=== PATIENT | female | born 1995 | race Two or more races ===

== ENCOUNTER 2023-12-29 19:20 | Inpatient (IN) | payer MEDICAID, OTHER ==
[~2023-12-29] VITALS: Ht 157.5 cm; Wt 58.4 kg
--- NOTE | 2023-12-29 19:42 | ED.PDOC ---
SOB-HPI HPI Comments [age] year old female who came to ER for shortness of breath. Patient does have history of asthma. States for the past 2 days she has been having shortness of breath and wheezing, progressively worsening. Albuterol inhalers taken at home has offered no relief. Upon arrival paramedics patient was saturating 70% on room air. Patient was given breathing treatment and it improved to 94%. Patient currently complaining of headaches as well. 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 Family History Family History: Reviewed,noncontributory to illness Social History Smoker: Non-Smoker Alcohol: Denies ETOH Use Drugs: Denies Drug Use Lives In: Home Constitutional: denies: chills, diaphoresis, fatigue, fever, malaise, sweats, weakness, others EENTM: denies: blurred vision, double vision, ear bleeding, ear discharge, ear drainage, ear pain, ear ringing, eye pain, eye redness, hearing loss, mouth pain, mouth swelling, nasal discharge, nose bleeding, nose congestion, nose pain, photophobia, tearing, throat pain, throat swelling, voice changes, others Respiratory: reports: cough, SOB at rest, shortness of breath, wheezing; denies: hemoptysis, orthopnea, SOB with excertion, stridor, others Cardiovascular: denies: chest pain, dizzy spells, diaphoresis, Dyspnea on exertion, edema, irregular heart beat, left arm pain, lightheadedness, palpitations, PND, syncope, others Gastrointestinal: denies: abdomen distended, abdominal pain, blood streaked bowels, constipated, diarrhea, dysphagia, difficulty swallowing, hematemesis, melena, nausea, poor appetite, poor fluid intake, rectal bleeding, rectal pain, vomiting, others Genitourinary: denies: abnormal vagina bleeding, burning, dyspareunia, dysuria, flank pain, frequency, hematuria, incontinence, pain, , vagina dischar ge, urgency, others Neurological: denies: dizziness, fainting, headache, left sided numbness, left sided weakness, numbness, paresthesia, pre-existing deficit, right sided numbness, right sided weakness, seizure, speech problems, tingling, tremors, weakness, others Musculoskeletal: denies: back pain, gout, joint pain, joint swelling, muscle pain, muscle stiffness, neck pain, others Integumetry: denies: bruises, change in color, change in hair/nails, dryness, laceration, lesions, lumps, rash, wounds, others Allergic/Immunocompromised: denies: Difficulty Healing, Frequent Infections, Hives, Itching, others Hematologic/Lymphatic: denies: anemia, blood clots, easy bleeding, easy bruising, swollen glands, others Endocrine: denies: excessive hunger, excessive sweating, excessive thirst, excessive urination, flushing, intolerance to cold, intolerance to heat, unexplained weight gain, unexplained weight loss, others Psychiatric: denies: anxiety, bipolar disorder, depression, hopeless, panic disorder, schizophrenia, sleepless, suicidal, others Physical Exam General Appearance: Moderate Distress, Normal HEENT: Normal ENT Inspection, Pharynx Normal, TMs Normal Neck: Full Range of Motion, Non-Tender, Normal, Normal Inspection Respiratory: Chest Non-Tender, No Accessory Muscle Use, Wheezing Cardiovascular: No Edema, No JVD, No Murmur, No Gallop, Normal Peripheral Pulses, Regular Rate/Rhythm Breast Exam: Deferred Gastrointestinal: No Organomegaly, Non Tender, No Pulsatile Mass, Normal Bowel Sounds, Soft Genitalia: Deferred Pelvic: Deferred Rectal: Deferred Extremities: No calf tenderness, Normal capillary refill, Normal inspection, Normal range of motion, Non-tender, No pedal edema Musculoskeletal : Apperance: Normal Neurologic: Alert, director religious education II-XII nml as Tested, No Motor Deficits, Normal Affect, Normal Mood, No Sensory Deficits Cerebellar Function: Normal Reflexes: Normal Skin: Dry, Normal Color, Warm Lymphatic: No Adenopathy Was a procedure done? Was a procedure done?: No Differential Dx Differential Diagnosis: Asthma, Bronchitis, Pneumonia, Respiratory Distress X-Ray, Labs, Meds, VS Vital Signs Date Time Temp Pulse Resp B/P (MAP) Pulse Ox O2 Delivery O2 Flow Rate FiO2 12/29/23 20:45 107 18 94 Nasal Cannula 4.0 12/29/23 20:45 97.8 107 18 111/55 (73) 94 97.8 12/29/23 19:51 19 93 Nasal Cannula* 4 36 12/29/23 19:25 98.6 108 18 136/84 (101) 96 Lab Test 12/29/23 19:50 Range/Units White Blood Count 7.0 4.4-10.8 10^3/uL Red Blood Count 4.48 4.0-5.20 10^6/uL Hemoglobin 11.4 L 12.2-16.2 g/dL Hematocrit 35.8 L 36.0-46.0 % Mean Corpuscular Volume 80.0 80.0-100.0 fL Mean Corpuscular Hemoglobin 25.4 L 28.0-32.0 pg Mean Corpuscular Hemoglobin Concent 31.8 L 32.0-36.0 g/dL Red Cell Distribution Width 16.2 H 11.8-14.3 % Platelet Count 316 140-450 10^3/uL Mean Platelet Volume 7.5 6.9-10.8 fL Neutrophils (%) (Auto) 72.8 37.0-80.0 % Lymphocytes (%) (Auto) 11.2 10.0-50.0 % Monocytes (%) (Auto) 7.4 0.0-12.0 % Eosinophils (%) (Auto) 8.0 H 0.0-7.0 % Basophils (%) (Auto) 0.6 0.0-2.0 % Neutrophils # (Auto) 5.1 1.6-8.6 10 ^3/uL Lymphocytes # (Auto) 0.8 0.4-5.4 10 ^3/uL Monocytes # (Auto) 0.5 0-1.3 10 ^3/uL Eosinophils # (Auto) 0.6 0-0.8 10 ^3/uL Basophils # (Auto) 0 0-0.2 10 ^3/uL Nucleated Red Blood Cells 0.0 % Sodium Level 141 136-145 mmol/L Potassium Level 3.7 3.5-5.1 mmol/L Chloride Level 110 H 98-107 mmol/L Carbon Dioxide Level 22 20-31 mmol/L Anion Gap 9 5-15 Blood Urea Nitrogen 15 9-23 mg/dL Creatinine 0.79 0.550-1.02 mg/dL Glomerular Filtration Rate Calc 104 >90 mL/min BUN/Creatinine Ratio 19.0 10.0-20.0 Serum Glucose 118 H 74-106 mg/dL Calcium Level 9.4 8.7-10.4 mg/dL Current Medications Medications (Trade) Dose Ordered Sig/Héctor Route Start Time Stop Time Status Last Admin Albuterol (Ventolin Medneb) 5 mg ONCE ONCE NEB 12/29/23 19:45 12/29/23 19:46 DC 12/29/23 19:51 Ipratropium [place] (Atrovent Medneb) 0.5 mg ONCE ONCE NEB 12/29/23 19:45 12/29/23 19:46 DC 12/29/23 19:51 Methylprednisolone Sodium Succinate (Solu Medrol) 62.5 mg ONCE ONCE IV 12/29/23 19:45 12/29/23 19:46 DC 12/29/23 20:47 Time of 1ST Reevaluation: 19:39 Reevaluation 1ST: Unchanged Patient Education/Counseling: Diagnosis, Treatment Family Education/Counseling: No Family Present Departure 1 Departure Time of Disposition: 21:29 (Patient presented with acute shortness of breath concerning for acute on chronic asthma Exacerbation, Pneumonia, ACS, CHF, Pneumothorax. Less likely PE, Dissection. Data: 1. I ordered and reviewed the result of at least 3 labs including a CBC, BMP, and Troponin. 2. I independently interpreted the following tests: Chest X-ray shows benign just .Risk:This patient has a high risk of morbidity due to further diagnostic testing or treatment and may suffer from respiratory or cardiac etiology . Workup reveals a likely acute on chronic asthma exacerbation Exacerbation and patient should be admitted for further workup. and possible expert consultation.) Impression: Primary Impression: Asthma exacerbation Qualified Codes: J45.41 - Moderate persistent asthma with (acute) exacerbation Disposition: ADMITTED INPATIENT Admit to: Med Surg Condition: Serious Critical Care Note Critical Care Time?: No Stability Stability form required: No Heart Score Heart Score: Heart Score Response (Comments) Value History N/A 0 EKG N/A 0 Age N/A 0 Risk Factors N/A 0 Troponin N/A 0 Total 0 I personally scribed for GIOVANNI SHEN MD ([email or web address]) on 12/29/23 at 19:42. Electronically submitted by Ant Coffman ([email or web address]). GIOVANNI SHEN MD Dec 29, 2023 19:42
[2023-12-29] MEDS: IPRATROPIUM BROM 0.5 MG/2.5ML INH SOL NEB ONE (19:51)
[2023-12-29] MEDS: ALBUTEROL SULF 2.5 MG/0.5ML(0.5%) NEB SOLN NEB ONE (19:51)
[2023-12-29 20:06] LABS: Basophils # (auto) 0 10 ^3/uL (0-0.2); Basophils % (auto) 0.6 % (0.0-2.0); Eosinophils # (auto) 0.6 10 ^3/uL (0-0.8); Hematocrit 35.8 % (36.0-46.0); Hemoglobin 11.4 g/dL (12.2-16.2); Lymphocytes # (auto) 0.8 10 ^3/uL (0.4-5.4); Lymphocytes % (auto) 11.2 % (10.0-50.0); Mean Corpuscular Hemoglobin 25.4 pg (28.0-32.0); Mean Corpuscular Hgb Conc. 31.8 g/dL (32.0-36.0); Monocytes # (auto) 0.5 10 ^3/uL (0-1.3); Monocytes % (auto) 7.4 % (0.0-12.0); Neutrophils # (auto) 5.1 10 ^3/uL (1.6-8.6); Neutrophils % (auto) 72.8 % (37.0-80.0); Platelet Count (auto) 316 10^3/uL (140-450); Red Blood Cells 4.48 10^6/uL (4.0-5.20); Red Cell Distribution Width 16.2 % (11.8-14.3)
[2023-12-29 20:14] LABS: Chloride 110 mmol/L (98-107); Potassium 3.7 mmol/L (3.5-5.1); Sodium 141 mmol/L (136-145)
[2023-12-29 20:15] LABS: Anion Gap 9 (5-15); Carbon Dioxide 22 mmol/L (20-31)
[2023-12-29 20:16] LABS: Calcium 9.4 mg/dL (8.7-10.4)
[2023-12-29 20:20] LABS: Blood Urea Nitrogen 15 mg/dL (9-23); Glucose 118 mg/dL (74-106)
--- NOTE | 2023-12-29 20:45 | DVH ---
Procedure: XY CHEST TWO VIEWS ROUTINE 12/29/2023 08:22 PM Indication: sob. Comparison: None TECHNIQUE: XY CHEST TWO VIEWS ROUTINE FINDINGS: Medical devices: None. Cardiomediastinal: The heart is normal in size. Pulmonary vasculature is within normal limits. Lungs: No focal pulmonary opacity is seen. The costophrenic angles are clear. No pneumothorax. Bones/soft tissues: No acute abnormality is noted. IMPRESSION: No acute cardiopulmonary disease.
[2023-12-29] MEDS: methylPREDNISolone SOD SUCC 125 MG/2 ML VL IV ONE (20:47)
[2023-12-30] VITALS (16 sets, daily range): BP systolic 93–116; BP diastolic 56–68; PULSE 93–118; RESP 14–22; TEMP 98.2–99.3; O2SAT 90–100
[2023-12-30] MEDS: ALBUTEROL SULF 2.5 MG/0.5ML(0.5%) NEB SOLN NEB ONE (01:10)
[2023-12-30] MEDS: IPRATROPIUM BROM 0.5 MG/2.5ML INH SOL NEB ONE (01:10)
[2023-12-30] MEDS ORDERED: MAALOX PLUS or MAALOX 30 ML PO PRN (03:45)
[2023-12-30] MEDS ORDERED: LORazepam 0.5 MG TAB PO PRN (03:45)
[2023-12-30] MEDS ORDERED: DEXTROSE (50%) 50ML SYRG IV PRN (03:45)
[2023-12-30] MEDS ORDERED: TEMAZEPAM 15 MG CAP PO PRN (03:45)
[2023-12-30] MEDS ORDERED: HYDROcodone-ACET 5/325MG TAB PO PRN (03:45)
[2023-12-30] MEDS ORDERED: MORPHINE SULFATE INJ 2 MG/ml SYRG IV PRN (03:45)
[2023-12-30] MEDS ORDERED: DOCUSATE SOD 100 MG CAP PO PRN (03:45)
--- NOTE | 2023-12-30 03:56 | DVHHP2 ---
History of Present Illness Reason for Visit: shortness of breath History of Present Illness 28 yo female with shortness of breath and has a history of asthma patient was recommended for admission and for further evaluation patient was started on medication for acute management Pulmonary: Asthma Review of Systems Constitutional: No: Fever, Chills, Sweats, Weakness, Malaise, Other Eyes: No: Pain, Vision change, Conjunctivae inflammation, Eyelid inflammation, Other, Redness ENT: No: Ear pain, Ear discharge, Nose pain, Nose discharge, Nose congestion, Mouth pain, Mouth swelling, Throat pain, Throat swelling, Other Respiratory: Cough, Shortness of breath, Wheezing; No: Dry, SOB with excertion, Hemoptysis, Pleuritic Pain, Sputum, Wheezing, Other Cardiovascular: No: Chest Pain, Palpitations, Orthopnea, Paroxysmal Noc. Dyspnea, Edema, Lt Headedness, Other Gastrointestinal: No: Nausea, Vomiting, Abdominal Pain, Diarrhea, Constipation, Melena, Hematochezia, Other Genitourinary: No Dysuria, No Frequency, No Incontinence, No Hematuria, No Retention, No Other Musculoskeletal: No: other, neck pain, shoulder pain, arm pain, back pain, hand pain, leg pain, foot pain Skin: No: Rash, Lesions, Jaundice, Bruising, Other Neurological: No: Weakness, Numbness, Incoordination, Change in speech, Confusion, Seizures, Other Allergies: Coded Allergies: NO KNOWN ALLERGIES (Unverified , 12/29/23) Medications Current Medications Medications Dose Ordered Sig/Héctor Route Start Time Stop Time Status Last Admin Dose Admin Levofloxacin 500 mg DAILY PO 12/30/23 03:45 UNV Prednisone 20 mg Q8HR PO 12/30/23 06:00 UNV Albuterol 2.5 mg Q4HWA PRN NEB 12/30/23 03:45 UNV Ipratropium [place] 0.5 mg Q4HWA PRN NEB 12/30/23 03:45 UNV Diagnostic Test (Pha) 1 strip ACHS 12/30/23 07:00 UNV Insulin Human Regular ACHS SC 12/30/23 07:00 UNV Dextrose 50 ml UD PRN IV 12/30/23 03:45 UNV Lorazepam 0.5 mg Q6HP PRN PO 12/30/23 03:45 UNV Al Hydrox/Mg Hydrox/Simethicone 30 ml Q6HP PRN PO 12/30/23 03:45 UNV Docusate Sodium 100 mg BIDPRN PRN PO 12/30/23 03:45 UNV Acetaminophen 650 mg Q6HP PRN PO 12/30/23 03:45 UNV Temazepam 15 mg QHSP PRN PO 12/30/23 03:45 UNV Acetaminophen/ Hydrocodone Bitart 1 tab Q4HP PRN PO 12/30/23 03:45 UNV Ondansetron HCl 4 mg Q4HP PRN IV 12/30/23 03:45 UNV Morphine Sulfate 2 mg Q4HPRN PRN IV 12/30/23 03:45 UNV Exam Vital Signs Vital Signs Date Time Temp Pulse Resp B/P (MAP) Pulse Ox O2 Delivery O2 Flow Rate FiO2 12/30/23 03:07 98.2 98 20 105/65 (78) 96 98.2 12/30/23 01:10 Nasal Cannula* 4 36 General Appearance: Alert, Oriented X3 HEENT: Atraumatic, PERRLA Respiratory: Clear to auscultation, Normal air movement Cardiovascular: Regular rate, Normal S1, Normal S2 Abdominal: Normal bowel sounds, Soft Extremities: No clubbing, No cyanosis Skin: No rashes, No breakdown Neuro: Normal gait, Normal speech Psych/Mental Status: Mood NL Labs/Xrays Labs Test 12/29/23 19:50 Range/Units White Blood Count 7.0 4.4-10.8 10^3/uL Red Blood Count 4.48 4.0-5.20 10^6/uL Hemoglobin 11.4 L 12.2-16.2 g/dL Hematocrit 35.8 L 36.0-46.0 % Mean Corpuscular Volume 80.0 80.0-100.0 fL Mean Corpuscular Hemoglobin 25.4 L 28.0-32.0 pg Mean Corpuscular Hemoglobin Concent 31.8 L 32.0-36.0 g/dL Red Cell Distribution Width 16.2 H 11.8-14.3 % Platelet Count 316 140-450 10^3/uL Mean Platelet Volume 7.5 6.9-10.8 fL Neutrophils (%) (Auto) 72.8 37.0-80.0 % Lymphocytes (%) (Auto) 11.2 10.0-50.0 % Monocytes (%) (Auto) 7.4 0.0-12.0 % Eosinophils (%) (Auto) 8.0 H 0.0-7.0 % Basophils (%) (Auto) 0.6 0.0-2.0 % Neutrophils # (Auto) 5.1 1.6-8.6 10 ^3/uL Lymphocytes # (Auto) 0.8 0.4-5.4 10 ^3/uL Monocytes # (Auto) 0.5 0-1.3 10 ^3/uL Eosinophils # (Auto) 0.6 0-0.8 10 ^3/uL Basophils # (Auto) 0 0-0.2 10 ^3/uL Nucleated Red Blood Cells 0.0 % Sodium Level 141 136-145 mmol/L Potassium Level 3.7 3.5-5.1 mmol/L Chloride Level 110 H 98-107 mmol/L Carbon Dioxide Level 22 20-31 mmol/L Anion Gap 9 5-15 Blood Urea Nitrogen 15 9-23 mg/dL Creatinine 0.79 0.550-1.02 mg/dL Glomerular Filtration Rate Calc 104 >90 mL/min BUN/Creatinine Ratio 19.0 10.0-20.0 Serum Glucose 118 H 74-106 mg/dL Calcium Level 9.4 8.7-10.4 mg/dL Assessment/Plan Assessment/Plan Admit to Med/Surg Asthma exacerbation r/o pna levaqui started po po steroids prn breathing treatments Plan discussed with: Patient My Orders Orders - ALETHA GUSMAN MD Procedure Category Date Status Time Covid19 Antigen Jesus[facility] LAB 12/30/23 Logged Rapid Influenza A&B LAB 12/30/23 Logged 03:44 Levofloxacin Tablet PHA 12/30/23 Logged (Levaquin Tablet) 03:45 Prednisone Tablet PHA 12/30/23 Logged 06:00 Albuterol Medneb PHA 12/30/23 Logged (Ventolin Medneb) 03:45 Ipratropium Medneb PHA 12/30/23 Logged (Atrovent Medneb) 03:45 Med Neb Initial RT 12/30/23 Logged Treatment 03:44 Glucose Blood PHA 12/30/23 Logged (Accu-Chek Comfort 07:00 Insulin R (Human) PHA 12/30/23 Logged (Insulin R) 07:00 Dextrose 50% Syringe PHA 12/30/23 Logged 03:45 Admit ADMIT 12/30/23 Transmitted 03:44 Code Status CODE 12/30/23 Transmitted 03:44 Vital Signs [facility] 12/30/23 In Process 03:44 Review Orders With [facility] 12/30/23 In Process Adm.Md 03:44 Regular Diet DIET 12/30/23 Transmitted Breakfast Lorazepam Tablet PHA 12/30/23 Logged (Ativan Tablet) 03:45 Alum & Mag PHA 12/30/23 Logged Hydrox-Simethicone 03:45 Docusate Sodium PHA 12/30/23 Logged Capsule (Colace 03:45 Acetaminophen Tablet PHA 12/30/23 Logged (Tylenol Tablet) 03:45 Temazepam (Restoril) PHA 12/30/23 Logged 03:45 Notify Md Of Changes [facility] 12/30/23 In Process From Base 03:44 Advance Directive [facility] 12/30/23 In Process 03:44 Basic Metabolic Panel LAB 12/30/23 Logged 04:00 Complete Blood Count LAB 12/30/23 Logged 04:00 Patient Condition ORDERS 12/30/23 Transmitted 03:44 Allergies [facility] 12/30/23 In Process 03:44 Hydrocodone-Acet PHA 12/30/23 Logged 5/325mg Tab ([place] 03:45 Ondansetron Hcl PHA 12/30/23 Logged (Zofran) 03:45 Morphine Sulfate PHA 12/30/23 Logged Injection 03:45 Notify Md Of Changes [facility] 12/30/23 In Process From Base 03:44 Oxygen By Nasal RT 12/30/23 Transmitted Cannula 03:44 Problem List: (1) Asthma exacerbation Date of Service: Dec 30, 2023 Billing Provider: ALETHA GUSMAN MD Common Visit Codes: [id number] INP/OBS CARE (HIGH) ALETHA GUSMAN MD Dec 30, 2023 03:56
[2023-12-30] MEDS: levoFLOXacin 500 MG TAB PO SCH (04:15)
[2023-12-30 05:08] LABS: Basophils # (auto) 0 10 ^3/uL (0-0.2); Basophils % (auto) 0.1 % (0.0-2.0); Eosinophils # (auto) 0 10 ^3/uL (0-0.8); Lymphocytes # (auto) 0.4 10 ^3/uL (0.4-5.4); Monocytes # (auto) 0.1 10 ^3/uL (0-1.3); Platelet Count (auto) 324 10^3/uL (140-450)
[2023-12-30 05:11] LABS: Eosinophils % (auto) 0.1 % (0.0-7.0); Hematocrit 33.8 % (36.0-46.0); Hemoglobin 10.9 g/dL (12.2-16.2); Lymphocytes % (auto) 5.8 % (10.0-50.0); Mean Corpuscular Hemoglobin 25.6 pg (28.0-32.0); Mean Corpuscular Hgb Conc. 32.2 g/dL (32.0-36.0); Mean Corpuscular Volume 79.5 fL (80.0-100.0); Monocytes % (auto) 1.5 % (0.0-12.0); Neutrophils % (auto) 92.5 % (37.0-80.0); Red Blood Cells 4.26 10^6/uL (4.0-5.20); Red Cell Distribution Width 16.5 % (11.8-14.3); White Blood Cell 6.5 10^3/uL (4.4-10.8)
[2023-12-30 05:14] LABS: Anion Gap 9 (5-15); Carbon Dioxide 22 mmol/L (20-31); Chloride 107 mmol/L (98-107); Sodium 138 mmol/L (136-145)
[2023-12-30 05:15] LABS: Calcium 9.6 mg/dL (8.7-10.4)
[2023-12-30 05:20] LABS: BUN/Creatinine Ratio 17.6 (10.0-20.0); Blood Urea Nitrogen 13 mg/dL (9-23); Glucose 133 mg/dL (74-106)
[2023-12-30] MEDS: ALBUTEROL SULF 2.5 MG/0.5ML(0.5%) NEB SOLN NEB PRN (05:29)
[2023-12-30] MEDS: IPRATROPIUM BROM 0.5 MG/2.5ML INH SOL NEB PRN (05:29)
[2023-12-30 05:38] LABS: COVID19 ANTIGEN SOFIA FIA NEGATIVE (NEGATIVE); Rapid Influenza A Negative (Negative); Rapid Influenza B Negative (Negative)
[2023-12-30] MEDS: predniSONE 20 MG TAB PO SCH (05:39)
[2023-12-30] MEDS: InsuLIN REG 1unit/0.01ml Soln (100units/ml) SC SCH (06:49)
[2023-12-30] MEDS: ACCU-CHEK COMFORT CURVE STRIP VI SCH (06:49)
[2023-12-30] MEDS: ONDANSETRON HCL 4 MG/2 ML VIAL IV PRN (08:01)
[2023-12-30] MEDS ORDERED: ALBU108A5 INH (10:06)
--- NOTE | 2023-12-30 13:35 | DVHPN2 ---
Subjective looks rested Changes from previous H/P or p: No Changes Eyes: No Pain, No Vision change, No Conjunctivae inflammation, No Eyelid inflammation, No Other, No Redness ENT: No Ear pain, No Ear discharge, No Nose pain, No Nose discharge, No Nose congestion, No Mouth pain, No Mouth swelling, No Throat pain, No Throat swelling, No Other Cardiovascular: No Chest Pain, No Palpitations, No Orthopnea, No Paroxysmal Noc. Dyspnea, No Edema, No Lt Headedness, No Other Respiratory: Cough; No Dry; Shortness of breath; No SOB with excertion; W heezing; No Hemoptysis, No Pleuritic Pain, No Sputum, No Other Gastrointestinal: No Nausea, No Vomiting, No Abdominal Pain, No Diarrhea, No Constipation, No Melena, No Hematochezia, No Other Genitourinary: No Dysuria, No Frequency, No Incontinence, No Hematuria, No Retention, No Other Musculoskeletal: No other, No neck pain, No shoulder pain, No arm pain, No back pain, No hand pain, No leg pain, No foot pain Skin: No Rash, No Lesions, No Jaundice, No Bruising, No Other Objective Vitals Vital Signs Date Time Temp Pulse Resp B/P (MAP) Pulse Ox O2 Delivery O2 Flow Rate FiO2 12/30/23 09:30 95 Nasal Cannula* 4 36 12/30/23 09:30 98.4 99 20 109/64 (79) 98.4 General Appearance: Alert, Oriented X3, Cooperative, No acute distress Lungs: Other (bilateral end expiratory wheezing present) Cardiovascular: Regular rate, Normal S1, Normal S2 Abdomen: Normal bowel sounds, Soft, No tenderness, No hepatospenomegaly Musculoskeletal: Normal sensory function, Normal motor function Extremities: No edema Neuro: Normal speech, Strength at 5/5 X4 ext, Normal tone, Sensation intact Psych/Mental Status: Mental status NL, Mood NL Medications Current Medications Medications Dose Ordered Sig/Héctor Route Start Time Stop Time Status Last Admin Dose Admin Levofloxacin 500 mg DAILY PO 12/30/23 03:45 12/30/23 09:35 500 MG Prednisone 20 mg Q8HR PO 12/30/23 06:00 12/30/23 05:39 20 MG Albuterol 2.5 mg Q4HWA PRN NEB 12/30/23 03:45 12/30/23 05:29 2.5 MG Ipratropium [place] 0.5 mg Q4HWA PRN NEB 12/30/23 03:45 12/30/23 05:29 0.5 MG Diagnostic Test (Pha) 1 strip ACHS 12/30/23 07:00 12/30/23 11:37 1 STRIP Insulin Human Regular ACHS SC 12/30/23 07:00 Dextrose 50 ml UD PRN IV 12/30/23 03:45 Lorazepam 0.5 mg Q6HP PRN PO 12/30/23 03:45 Al Hydrox/Mg Hydrox/Simethicone 30 ml Q6HP PRN PO 12/30/23 03:45 Docusate Sodium 100 mg BIDPRN PRN PO 12/30/23 03:45 Acetaminophen 650 mg Q6HP PRN PO 12/30/23 03:45 Temazepam 15 mg QHSP PRN PO 12/30/23 03:45 Acetaminophen/ Hydrocodone Bitart 1 tab Q4HP PRN PO 12/30/23 03:45 Ondansetron HCl 4 mg Q4HP PRN IV 12/30/23 03:45 12/30/23 08:01 4 MG Morphine Sulfate 2 mg Q4HPRN PRN IV 12/30/23 03:45 Laboratory Results Laboratory Tests 12/30/23 04:35 Chemistry Test 12/29/23 19:50 12/30/23 04:35 Calcium Level 9.4 mg/dL (8.7-10.4) 9.6 mg/dL (8.7-10.4) Labs and/or images reviewed: Labs reviewed by me, Image(s) reviewed by me Assessment/Plan Assessment/Plan asthma exacerbation- nebulizer/steroids/antibiotics FLUVACCINE BEFORE DC Plan discussed with: Patient, Spouse Date of Service: Dec 30, 2023 Billing Provider: CHRISTIANA LOCKE MD Common Visit Codes: [id number] INP/OBS CARE(HIGH), [id number]/OBS SAME DATE (MOD) CHRISTIANA LOCKE MD Dec 30, 2023 13:35
[2023-12-30] MEDS: methylPREDNISolone SOD SUCC 40 MG/ML VL IV SCH (16:53)
[2023-12-31] VITALS (21 sets, daily range): BP systolic 106–124; BP diastolic 61–75; PULSE 91–122; RESP 14–20; TEMP 98.1–98.9; O2SAT 92–99
[2023-12-31 08:29] LABS: Hepatitis B Surface Antigen Negative (Negative)
--- NOTE | 2023-12-31 08:48 | DVH ---
CHEST RADIOGRAPH Indication: ASTHMA EXACERBATION Technique: Single frontal view of the chest was obtained Comparison: None FINDINGS: Lines and Tubes: None Lungs: No focal consolidation. Pleura: No effusion. No pneumothorax. Cardiomediastinal contours: Unremarkable Bones: No acute osseous abnormality. IMPRESSION: No acute cardiopulmonary disease.
[2023-12-31 08:50] LABS: Hepatitis C Antibody Negative (Negative)
--- NOTE | 2023-12-31 14:59 | DVHPN2 ---
Subjective Still having respiratory distress especially with movement and getting out of bed with diffuse wheezing and cough Changes from previous H/P or p: Changes Eyes: No Pain, No Vision change, No Conjunctivae inflammation, No Eyelid inflammation, No Other, No Redness ENT: No Ear pain, No Ear discharge, No Nose pain, No Nose discharge, No Nose congestion, No Mouth pain, No Mouth swelling, No Throat pain, No Throat swelling, No Other Cardiovascular: No Chest Pain, No Palpitations, No Orthopnea, No Paroxysmal Noc. Dyspnea, No Edema, No Lt Headedness, No Other Respiratory: Cough; No Dry; Shortness of breath; No SOB with excertion; W heezing; No Hemoptysis, No Pleuritic Pain, No Sputum, No Other Gastrointestinal: No Nausea, No Vomiting, No Abdominal Pain, No Diarrhea, No Constipation, No Melena, No Hematochezia, No Other Genitourinary: No Dysuria, No Frequency, No Incontinence, No Hematuria, No Retention, No Other Musculoskeletal: No other, No neck pain, No shoulder pain, No arm pain, No back pain, No hand pain, No leg pain, No foot pain Skin: No Rash, No Lesions, No Jaundice, No Bruising, No Other Objective Vitals Vital Signs Date Time Temp Pulse Resp B/P (MAP) Pulse Ox O2 Delivery O2 Flow Rate FiO2 12/31/23 14:17 122 16 98 12/31/23 13:00 98.9 118/72 (87) 98.9 12/31/23 10:00 Nasal Cannula* 3 32 Intake/Output Intake and Output 12/31/23 07:00 Intake Total 1130 ml Output Total 250 ml Balance 880 ml Intake Oral 1130 ml Output Urine Total 250 ml Stool Total 0 ml # Voids 2 General Appearance: Alert, Oriented X3, Cooperative, No acute distress Lungs: Other (bilateral end expiratory wheezing present) Cardiovascular: Regular rate, Normal S1, Normal S2 Abdomen: Normal bowel sounds, Soft, No tenderness, No hepatospenomegaly Musculoskeletal: Normal sensory function, Normal motor function Extremities: No edema Neuro: Normal speech, Strength at 5/5 X4 ext, Normal tone, Sensation intact Psych/Mental Status: Mental status NL, Mood NL Medications Current Medications Medications Dose Ordered Sig/Héctor Route Start Time Stop Time Status Last Admin Dose Admin Levofloxacin 500 mg DAILY PO 12/30/23 03:45 12/31/23 08:36 500 MG Albuterol 2.5 mg Q4HWA PRN NEB 12/30/23 03:45 12/31/23 14:09 2.5 MG Ipratropium [place] 0.5 mg Q4HWA PRN NEB 12/30/23 03:45 12/31/23 14:09 0.5 MG Acetaminophen 650 mg Q6HP PRN PO 12/30/23 03:45 Methylprednisolone Sodium Succinate 40 mg Q8HR IV 12/30/23 14:00 12/31/23 14:48 40 MG Laboratory Results Laboratory Tests 12/30/23 04:35 Assessment/Plan Assessment/Plan Asthma exacerbation Acute hypoxic respiratory failure Plan Continue oxygen as needed Albuterol and Atrovent as needed Levofloxacin IV steroids Consult Pulmonary Medicine Monitor closely Plan discussed with: Patient Date of Service: Dec 31, 2023 Billing Provider: GRACIE CORREIA MD Common Visit Codes: [id number] INP/OBS CARE(HIGH) GRACIE CORREIA MD Dec 31, 2023 14:59
[2023-12-31] MEDS ORDERED: ONDANSETRON HCL 4 MG/2 ML VIAL IV PRN (15:00)
--- NOTE | 2023-12-31 22:19 | DVHINCON2 ---
Date of service: Dec 31, [address] Luna Reason for Consultation Acute asthma exacerbation, acute hypoxic respiratory failure History of Present Illness 28-year-old woman history of asthma who presented with a chief complaint of shortness of breath. Two days of shortness of breath. She notes wheezing that has progressively worsening. She was not getting relief with any home inhalers. Upon arrival via EMS she was found to be hypoxic with a pulse oximetry reading of 70%. She has been initiated on supplemental oxygen. She was currently on 4 liters/minute via nasal cannula. Pulmonary consultation is called due to acute hypoxic respiratory failure and acute exacerbation of asthma. Review of systems: 14 point review of systems is negative unless otherwise noted above. Past medical history: Asthma Past surgical history: None mentioned in prior surgeries. Medications: Reviewed Allergies: No known drug allergies. Family history: No family history of premature CAD. No family history of lung disease Social history: Nonsmoker. No alcohol or illicit drug use. Family History: Patient reports no known family medical history. Allergies: Coded Allergies: NO KNOWN ALLERGIES (Unverified , 12/29/23) Home Meds Reported Medications Albuterol Sulfate (Albuterol Sulfate Hfa) 108 Mcg/Act Aer, INH 12/30/23 Current Medications Current Medications Medications (Trade) Dose Ordered Sig/Héctor Route PRN Reason Start Time Stop Time Status Last Admin Ondansetron HCl (Zofran) 4 mg Q4HPRN PRN IV NAUSEA / VOMITING 12/31/23 15:00 Vital Signs Vital Signs Date Time Temp Pulse Resp B/P (MAP) Pulse Ox O2 Delivery O2 Flow Rate FiO2 12/31/23 22:07 108 18 95 12/31/23 22:01 Nasal Cannula 3.5 12/31/23 22:01 32 12/31/23 21:00 98.8 106/62 (77) 98.8 Physical Exam Gen.: Patient lying in bed in no apparent distress. On supplemental oxygen. Head: Normocephalic, atraumatic Eyes: EOMI/PERRLA. Ears: Normal hearing. Normal anatomy. Neck/trachea: Trachea midline, supple. Nose: Normal external anatomy. Mouth: Moist mucous membranes. Chest: Decrease air entry bilaterally. Bilateral wheezing. No rhonchi. Cardio vascular: Positive S1, positive S2. Regular rate and rhythm. Abdomen: Positive bowel sounds in all 4 quadrants. Soft, non-tender, non- distended. : Deferred. Rectal: Deferred Skin: Warm, dry. Extremities: 2+ radial pulses bilaterally. No lower extremity edema. Neuro: Awake, alert, oriented x3. No gross motor or sensory deficits. Cranial nerves II through XII intact. Gait not assessed. Labs/Diagnostic Data Labs Test 12/30/23 11:21 12/30/23 04:35 12/30/23 04:14 Range/Units POC Glucose 111 H 70-106 mg/dl White Blood Count 6.5 4.4-10.8 10^3/uL Red Blood Count 4.26 4.0-5.20 10^6/uL Hemoglobin 10.9 L 12.2-16.2 g/dL Hematocrit 33.8 L 36.0-46.0 % Mean Corpuscular Volume 79.5 L 80.0-100.0 fL Mean Corpuscular Hemoglobin 25.6 L 28.0-32.0 pg Mean Corpuscular Hemoglobin Concent 32.2 32.0-36.0 g/dL Red Cell Distribution Width 16.5 H 11.8-14.3 % Platelet Count 324 140-450 10^3/uL Mean Platelet Volume 7.8 6.9-10.8 fL Neutrophils (%) (Auto) 92.5 H 37.0-80.0 % Lymphocytes (%) (Auto) 5.8 L 10.0-50.0 % Monocytes (%) (Auto) 1.5 0.0-12.0 % Eosinophils (%) (Auto) 0.1 0.0-7.0 % Basophils (%) (Auto) 0.1 0.0-2.0 % Neutrophils # (Auto) 6.0 1.6-8.6 10 ^3/uL Lymphocytes # (Auto) 0.4 0.4-5.4 10 ^3/uL Monocytes # (Auto) 0.1 0-1.3 10 ^3/uL Eosinophils # (Auto) 0 0-0.8 10 ^3/uL Basophils # (Auto) 0 0-0.2 10 ^3/uL Nucleated Red Blood Cells 0.0 % Sodium Level 138 136-145 mmol/L Potassium Level 4.0 3.5-5.1 mmol/L Chloride Level 107 98-107 mmol/L Carbon Dioxide Level 22 20-31 mmol/L Anion Gap 9 5-15 Blood Urea Nitrogen 13 9-23 mg/dL Creatinine 0.74 0.550-1.02 mg/dL Glomerular Filtration Rate Calc 112 >90 mL/min BUN/Creatinine Ratio 17.6 10.0-20.0 Serum Glucose 133 H 74-106 mg/dL Calcium Level 9.6 8.7-10.4 mg/dL Hepatitis B Surface Antigen Negative Negative Hepatitis C Antibody Negative Negative Influenza Type A Antigen Negative Negative Influenza Type B Antigen Negative Negative SARS-CoV-2 Antigen (Rapid) Negative NEGATIVE Assessment Impression: Acute hypoxic respiratory failure secondary to acute exacerbation of asthma Acute exacerbation of asthma Eosinophilic asthma, 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 No acute opacities. No pleural effusion or pneumothorax. Supplemental oxygen, 4 liters/minute via nasal cannula. Keep O2 saturation above 92%. Taper O2 as tolerated Continue bronchodilators IV steroids . Taper as tolerated. Recommend outpatient evaluation for immunologic given eosinophils of 600. DVT prophylaxis Prognosis: Guarded given multiple comorbidities. Rest of plan per hospitalist and other consultants. Thank you Dr. Luna for allowing me to participate in this patient's care. Further recommendations will depend on patient's clinical course. Please do not hesitate to contact me if you have any questions or concerns. This medical document was created using an electronic medical record system with [employer] dictation system. Although this document has been carefully reviewed, there may still be some phonetic and typographical errors. These areas are purely typographical due to imperfections of the software programs, and do not reflect any compromise in the patient's medical care. Plan discussed with: Patient, Other (LAUREL Jordan MD) ROSEMARY HERNANDEZ MD Dec 31, 2023 22:19
[2024-01-01] VITALS (22 sets, daily range): BP systolic 101–118; BP diastolic 52–71; PULSE 74–106; RESP 17–22; TEMP 97.7–98.5; O2SAT 92–99
[2024-01-01] MEDS: IPRATROPIUM BROM 0.5 MG/2.5ML INH SOL NEB SCH (06:29)
[2024-01-01] MEDS: ALBUTEROL SULF 2.5 MG/0.5ML(0.5%) NEB SOLN NEB SCH (06:29)
--- NOTE | 2024-01-01 09:59 | DVHPN2 ---
Subjective Slightly better Still having significant productive cough and wheezing She is on 3 L nasal cannula Changes from previous H/P or p: Changes Eyes: No Pain, No Vision change, No Conjunctivae inflammation, No Eyelid inflammation, No Other, No Redness ENT: No Ear pain, No Ear discharge, No Nose pain, No Nose discharge, No Nose congestion, No Mouth pain, No Mouth swelling, No Throat pain, No Throat swelling, No Other Cardiovascular: No Chest Pain, No Palpitations, No Orthopnea, No Paroxysmal Noc. Dyspnea, No Edema, No Lt Headedness, No Other Respiratory: Cough; No Dry; Shortness of breath; No SOB with excertion; W heezing; No Hemoptysis, No Pleuritic Pain, No Sputum, No Other Gastrointestinal: No Nausea, No Vomiting, No Abdominal Pain, No Diarrhea, No Constipation, No Melena, No Hematochezia, No Other Genitourinary: No Dysuria, No Frequency, No Incontinence, No Hematuria, No Retention, No Other Musculoskeletal: No other, No neck pain, No shoulder pain, No arm pain, No back pain, No hand pain, No leg pain, No foot pain Skin: No Rash, No Lesions, No Jaundice, No Bruising, No Other Objective Vitals Vital Signs Date Time Temp Pulse Resp B/P (MAP) Pulse Ox O2 Delivery O2 Flow Rate FiO2 01/01/24 08:52 97.7 86 17 104/67 (79) 96 97.7 01/01/24 06:32 Nasal Cannula* 3 32 Intake/Output Intake and Output 01/01/24 07:00 Intake Total 2220 ml Balance 2220 ml Intake Oral 2220 ml # Voids 6 General Appearance: Alert, Oriented X3, Cooperative, No acute distress Lungs: Other (bilateral end expiratory wheezing present) Cardiovascular: Regular rate, Normal S1, Normal S2 Abdomen: Normal bowel sounds, Soft, No tenderness, No hepatospenomegaly Musculoskeletal: Normal sensory function, Normal motor function Extremities: No edema Neuro: Normal speech, Strength at 5/5 X4 ext, Normal tone, Sensation intact Psych/Mental Status: Mental status NL, Mood NL Medications Current Medications Medications Dose Ordered Sig/Héctor Route Start Time Stop Time Status Last Admin Dose Admin Levofloxacin 500 mg DAILY PO 12/30/23 03:45 01/01/24 09:49 500 MG Acetaminophen 650 mg Q6HP PRN PO 12/30/23 03:45 Methylprednisolone Sodium Succinate 40 mg Q8HR IV 12/30/23 14:00 01/01/24 05:54 40 MG Ondansetron HCl 4 mg Q4HPRN PRN IV 12/31/23 15:00 Albuterol 2.5 mg Q4HR NEB 01/01/24 06:00 01/01/24 09:16 2.5 MG Ipratropium [place] 0.5 mg Q4HR NEB 01/01/24 06:00 01/01/24 09:16 0.5 MG Laboratory Results Laboratory Tests 12/30/23 04:35 Assessment/Plan Assessment/Plan Asthma exacerbation Acute hypoxic respiratory failure Plan 12/31/2023: Continue oxygen as needed Albuterol and Atrovent as needed Levofloxacin IV steroids Consult Pulmonary Medicine Monitor closely 01/01/2024: Continue the current management and plan Continue oxygen and med neb treatments as needed P.o. Levaquin Monitor in the hospital 1 more day Plan discussed with: Patient My Orders Orders - GRACIE CORREIA MD Procedure Category Date Status Time Ondansetron Hcl PHA 12/31/23 In Process (Zofran) 15:00 *Consult CONS 12/31/23 Transmitted / 14:57 Respiratory Culture MARY 01/01/24 In Process W/ Gs 03:12 Date of Service: Jan 01, 2024 Billing Provider: GRACIE CORREIA MD Common Visit Codes: [id number] INP/OBS CARE(HIGH) GRACIE CORREIA MD Jan 01, 2024 09:59
[2024-01-01] MEDS ORDERED: ARTIFICIAL TEARS 15ml EACHEYE PRN (14:15)
--- NOTE | 2024-01-01 20:47 | DVHPN2 ---
Progress Note - Dictate Date Seen: Jan 01, 2024 Medical Necessity Reason Pt with a Central, PICC or Fol: No Subjective Patient seen and examined at bedside. Remains on supplemental oxygen Overnight events reviewed. vital signs Vital Sign Date Time Temp Pulse Resp B/P (MAP) Pulse Ox O2 Delivery O2 Flow Rate FiO2 01/01/24 18:46 96 20 99 01/01/24 17:00 98.0 115/71 (86) 98.0 01/01/24 13:21 Nasal Cannula* 3 32 Total Intake and Output 12/31/23 12/31/23 01/01/24 15:00 23:00 07:00 Intake Total 1520 ml 700 ml Balance 1520 ml 700 ml medications Current Medications Medications Dose Ordered Sig/Héctor Route Start Time Stop Time Status Last Admin Dose Admin Levofloxacin 500 mg DAILY PO 12/30/23 03:45 01/01/24 09:49 500 MG Acetaminophen 650 mg Q6HP PRN PO 12/30/23 03:45 Methylprednisolone Sodium Succinate 40 mg Q8HR IV 12/30/23 14:00 01/01/24 14:42 40 MG Ondansetron HCl 4 mg Q4HPRN PRN IV 12/31/23 15:00 Albuterol 2.5 mg Q4HR NEB 01/01/24 06:00 01/01/24 18:41 2.5 MG Ipratropium [place] 0.5 mg Q4HR NEB 01/01/24 06:00 01/01/24 18:41 0.5 MG Artificial Tears 1 drop Q2HP PRN EACHEYE 01/01/24 14:15 objective Gen.: Patient lying in bed in no apparent distress. On supplemental oxygen. Head: Normocephalic, atraumatic. Eyes: EOMI/PERRLA. Ears: Normal hearing. Normal anatomy. Neck/trachea: Trachea midline, supple. Nose: Normal external anatomy. Mouth: Moist mucous membranes. Chest: Decreased air entry bilaterally. Wheezing, improved. No rhonchi. Cardiovascular: Positive S1, positive S2. Regular rate and rhythm. Abdomen: Positive bowel sounds in all 4 quadrants. Soft, non-tender, non- distended. : Deferred. Rectal: Deferred. Skin: Warm, dry. Intact. Extremities: 2+ radial pulses bilaterally. No lower extremity edema. Neuro: Awake, alert, oriented x3. No gross motor or sensory deficits. Cranial nerves II through XII intact. Gait not assessed. 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 Taper O2 as tolerated Wheezing improving. Continue bronchodilators Continue IV steroids Continue antibiotics Labs and imaging reviewed. Rest of plan as noted below. Plan: Chest x-ray imaging report reviewed. No acute opacities. No pleural effusion or pneumothorax. Supplemental oxygen, 3 liters/minute via nasal cannula. Keep O2 saturation above 92%. Taper O2 as tolerated Continue bronchodilators IV steroids . Taper as tolerated. Recommend outpatient evaluation for immunologic given eosinophils of 600. DVT prophylaxis Prognosis: Guarded given multiple comorbidities. Rest of plan per hospitalist and other consultants. Thank you Dr. Luna for allowing me to participate in this patient's care. Further recommendations will depend on patient's clinical course. Please do not hesitate to contact me if you have any questions or concerns. This medical document was created using an electronic medical record system with [employer] dictation system. Although this document has been carefully reviewed, there may still be some phonetic and typographical errors. These areas are purely typographical due to imperfections of the software programs, and do not reflect any compromise in the patient's medical care. Plan discussed with: Patient, Other (LAUREL Cha) ROSEMARY HERNANDEZ MD Jan 01, 2024 20:47
[2024-01-02] VITALS (17 sets, daily range): BP systolic 98–114; BP diastolic 57–74; PULSE 75–113; RESP 15–22; TEMP 97.3–98.9; O2SAT 91–97
[2024-01-02] MEDS: ACETAMINOPHEN 325 MG TAB PO PRN (02:47)
--- NOTE | 2024-01-02 15:59 | DVHPN2 ---
Subjective She is doing better She is still having significant wheezing and cough and however She gets hypoxic on room air Changes from previous H/P or p: Changes Eyes: No Pain, No Vision change, No Conjunctivae inflammation, No Eyelid inflammation, No Other, No Redness ENT: No Ear pain, No Ear discharge, No Nose pain, No Nose discharge, No Nose congestion, No Mouth pain, No Mouth swelling, No Throat pain, No Throat swelling, No Other Cardiovascular: No Chest Pain, No Palpitations, No Orthopnea, No Paroxysmal Noc. Dyspnea, No Edema, No Lt Headedness, No Other Respiratory: Cough; No Dry; Shortness of breath; No SOB with excertion; W heezing; No Hemoptysis, No Pleuritic Pain, No Sputum, No Other Gastrointestinal: No Nausea, No Vomiting, No Abdominal Pain, No Diarrhea, No Constipation, No Melena, No Hematochezia, No Other Genitourinary: No Dysuria, No Frequency, No Incontinence, No Hematuria, No Retention, No Other Musculoskeletal: No other, No neck pain, No shoulder pain, No arm pain, No back pain, No hand pain, No leg pain, No foot pain Skin: No Rash, No Lesions, No Jaundice, No Bruising, No Other Objective Vitals Vital Signs Date Time Temp Pulse Resp B/P (MAP) Pulse Ox O2 Delivery O2 Flow Rate FiO2 01/02/24 13:32 106 20 95 01/02/24 13:27 Nasal Cannula 3.0 01/02/24 13:27 32 01/02/24 13:00 97.5 114/65 (81) 97.5 Intake/Output Intake and Output 01/02/24 07:00 Intake Total 1100 ml Output Total 2 ml Balance 1098 ml Intake Oral 1100 ml Output Urine Total 2 ml # Voids 4 General Appearance: Alert, Oriented X3, Cooperative, No acute distress Lungs: Other (bilateral end expiratory wheezing present) Cardiovascular: Regular rate, Normal S1, Normal S2 Abdomen: Normal bowel sounds, Soft, No tenderness, No hepatospenomegaly Musculoskeletal: Normal sensory function, Normal motor function Extremities: No edema Neuro: Normal speech, Strength at 5/5 X4 ext, Normal tone, Sensation intact Psych/Mental Status: Mental status NL, Mood NL Medications Current Medications Medications Dose Ordered Sig/Héctor Route Start Time Stop Time Status Last Admin Dose Admin Levofloxacin 500 mg DAILY PO 12/30/23 03:45 01/02/24 08:45 500 MG Acetaminophen 650 mg Q6HP PRN PO 12/30/23 03:45 01/02/24 02:47 650 MG Methylprednisolone Sodium Succinate 40 mg Q8HR IV 12/30/23 14:00 01/02/24 13:45 40 MG Ondansetron HCl 4 mg Q4HPRN PRN IV 12/31/23 15:00 Albuterol 2.5 mg Q4HR NEB 01/01/24 06:00 01/02/24 13:26 2.5 MG Ipratropium [place] 0.5 mg Q4HR NEB 01/01/24 06:00 01/02/24 13:26 0.5 MG Artificial Tears 1 drop Q2HP PRN EACHEYE 01/01/24 14:15 Laboratory Results Laboratory Tests 12/30/23 04:35 Microbiology Microbiology Date/Time Source Procedure Growth Status 12/31/23 15:00 Sputum Gram Stain - Final Resulted 12/31/23 15:00 Sputum Respiratory Culture - Preliminary Resulted Assessment/Plan Assessment/Plan Asthma exacerbation Acute hypoxic respiratory failure Plan 12/31/2023: Continue oxygen as needed Albuterol and Atrovent as needed Levofloxacin IV steroids Consult Pulmonary Medicine Monitor closely 01/01/2024: Continue the current management and plan Continue oxygen and med neb treatments as needed P.o. Levaquin Monitor in the hospital 1 more day 01/02/2024: Continue the current management Oxygen as needed Med neb treatments P.o. Levaquin Incentive spirometry Out of bed as tolerated Plan discussed with: Patient My Orders Orders - GRACIE CORREIA MD Procedure Category Date Status Time Incentive Spirometry ORDERS 01/02/24 Transmitted 09:47 Date of Service: Jan 02, 2024 Billing Provider: GRACIE CORREIA MD Common Visit Codes: [id number] INP/OBS CARE(HIGH) GRACIE CORREIA MD Jan 02, 2024 15:59
--- NOTE | 2024-01-02 21:32 | DVHPN2 ---
Progress Note - Dictate Date Seen: Jan 02, 2024 Medical Necessity Reason Pt with a Central, PICC or Fol: No Subjective Patient seen and examined at bedside. Remains on supplemental oxygen Overnight events reviewed. vital signs Vital Sign Date Time Temp Pulse Resp B/P (MAP) Pulse Ox O2 Delivery O2 Flow Rate FiO2 01/02/24 21:00 97.3 90 20 114/74 (87) 94 97.3 01/02/24 18:43 Nasal Cannula 3.0 01/02/24 18:43 32 Total Intake and Output 01/01/24 01/01/24 01/02/24 15:00 23:00 07:00 Intake Total 900 ml 200 ml Output Total 2 ml Balance 900 ml 198 ml medications Current Medications Medications Dose Ordered Sig/Héctor Route Start Time Stop Time Status Last Admin Dose Admin Levofloxacin 500 mg DAILY PO 12/30/23 03:45 01/02/24 08:45 500 MG Acetaminophen 650 mg Q6HP PRN PO 12/30/23 03:45 01/02/24 02:47 650 MG Methylprednisolone Sodium Succinate 40 mg Q8HR IV 12/30/23 14:00 01/02/24 13:45 40 MG Ondansetron HCl 4 mg Q4HPRN PRN IV 12/31/23 15:00 Albuterol 2.5 mg Q4HR NEB 01/01/24 06:00 01/02/24 18:43 2.5 MG Ipratropium [place] 0.5 mg Q4HR NEB 01/01/24 06:00 01/02/24 18:43 0.5 MG Artificial Tears 1 drop Q2HP PRN EACHEYE 01/01/24 14:15 objective Gen.: Patient lying in bed in no apparent distress. On supplemental oxygen. Head: Normocephalic, atraumatic. Eyes: EOMI/PERRLA. Ears: Normal hearing. Normal anatomy. Neck/trachea: Trachea midline, supple. Nose: Normal external anatomy. Mouth: Moist mucous membranes. Chest: Decreased air entry bilaterally. Wheezing, improved. No rhonchi. Cardiovascular: Positive S1, positive S2. Regular rate and rhythm. Abdomen: Positive bowel sounds in all 4 quadrants. Soft, non-tender, non- distended. : Deferred. Rectal: Deferred. Skin: Warm, dry. Intact. Extremities: 2+ radial pulses bilaterally. No lower extremity edema. Neuro: Awake, alert, oriented x3. No gross motor or sensory deficits. Cranial nerves II through XII intact. Gait not assessed. 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 Continue bronchodilators Continue IV steroids Continue antibiotics Labs and imaging reviewed. Rest of plan as noted below. Plan: Chest x-ray imaging report reviewed. No acute opacities. No pleural effusion or pneumothorax. Supplemental oxygen, 3 liters/minute via nasal cannula. Keep O2 saturation above 92%. Taper O2 as tolerated Continue bronchodilators IV steroids . Taper as tolerated. Recommend outpatient evaluation for immunologic given eosinophils of 600. DVT prophylaxis Prognosis: Guarded given multiple comorbidities. Rest of plan per hospitalist and other consultants. Thank you Dr. Luna for allowing me to participate in this patient's care. Further recommendations will depend on patient's clinical course. Please do not hesitate to contact me if you have any questions or concerns. This medical document was created using an electronic medical record system with [employer] dictation system. Although this document has been carefully reviewed, there may still be some phonetic and typographical errors. These areas are purely typographical due to imperfections of the software programs, and do not reflect any compromise in the patient's medical care. Dietary Evaluation Review Comments: Continue current plan of care Expected Outcomes/Goals: F/U in 3-5 days Plan discussed with: Patient, Other (LAUREL Cha) ROSEMARY HERNANDEZ MD Jan 02, 2024 21:32
[2024-01-03] VITALS (14 sets, daily range): BP systolic 91–114; BP diastolic 56–72; PULSE 65–107; RESP 16–20; TEMP 36.4; O2SAT 90–96
[2024-01-03] MEDS ORDERED: METH4PAK PO (13:09)
[2024-01-03] MEDS ORDERED: FLUT250M2 INH (13:09)
[2024-01-03] MEDS ORDERED: AZITTAB PO (13:09)
--- NOTE | 2024-01-03 13:12 | DVHDS2 ---
Discharge Summary Date of Admission Dec 30, 2023 at 03:44 Date of Discharge: Jan 03, 2024 Labs/Diagnostic Data: Laboratory Results Test 12/30/23 11:21 12/30/23 04:35 12/30/23 04:14 POC Glucose 111 mg/dl (70-106) White Blood Count 6.5 10^3/uL (4.4-10.8) Red Blood Count 4.26 10^6/uL (4.0-5.20) Hemoglobin 10.9 g/dL (12.2-16.2) Hematocrit 33.8 % (36.0-46.0) Mean Corpuscular Volume 79.5 fL (80.0-100.0) Mean Corpuscular Hemoglobin 25.6 pg (28.0-32.0) Mean Corpuscular Hemoglobin Concent 32.2 g/dL (32.0-36.0) Red Cell Distribution Width 16.5 % (11.8-14.3) Platelet Count 324 10^3/uL (140-450) Mean Platelet Volume 7.8 fL (6.9-10.8) Neutrophils (%) (Auto) 92.5 % (37.0-80.0) Lymphocytes (%) (Auto) 5.8 % (10.0-50.0) Monocytes (%) (Auto) 1.5 % (0.0-12.0) Eosinophils (%) (Auto) 0.1 % (0.0-7.0) Basophils (%) (Auto) 0.1 % (0.0-2.0) Neutrophils # (Auto) 6.0 10 ^3/uL (1.6-8.6) Lymphocytes # (Auto) 0.4 10 ^3/uL (0.4-5.4) Monocytes # (Auto) 0.1 10 ^3/uL (0-1.3) Eosinophils # (Auto) 0 10 ^3/uL (0-0.8) Basophils # (Auto) 0 10 ^3/uL (0-0.2) Nucleated Red Blood Cells 0.0 % Sodium Level 138 mmol/L (136-145) Potassium Level 4.0 mmol/L (3.5-5.1) Chloride Level 107 mmol/L (98-107) Carbon Dioxide Level 22 mmol/L (20-31) Anion Gap 9 (5-15) Blood Urea Nitrogen 13 mg/dL (9-23) Creatinine 0.74 mg/dL (0.550-1.02) Glomerular Filtration Rate Calc 112 mL/min (>90) BUN/Creatinine Ratio 17.6 (10.0-20.0) Serum Glucose 133 mg/dL (74-106) Calcium Level 9.6 mg/dL (8.7-10.4) Hepatitis B Surface Antigen Negative (Negative) Hepatitis C Antibody Negative (Negative) Influenza Type A Antigen Negative (Negative) Influenza Type B Antigen Negative (Negative) SARS-CoV-2 Antigen (Rapid) Negative (NEGATIVE) Other Laboratory Tests 12/30/23 04:35 Brief Hx & Hospital Course: 28-year-old female with a history of asthma came with shortness of breaths and cough and severe wheezing She was treated with IV steroids and Levaquin and oxygen and med neb treatments Severe wheezing and hypoxia requiring oxygen for few days until the treatment actually started to improve her symptoms Today she is doing all right on room air, pulse ox is about 90 on room air Her wheezing has mostly resolved She is feeling better and therefore she will be discharged home on a tapered dose prednisone and Zithromax, she ran out of her Advair so it will be refilled and to continue the Ventolin as needed She is also requesting a new PCP and therefore we will letter come to the discharge clinic in 1 week for follow up Final diagnoses: Acute hypoxic respiratory failure due to asthma Asthma exacerbation Eosinophilic asthma Acute bronchitis Seasonal allergies Condition at Discharge: Stable Final Diagnosis/Problems List Asthma exacerbation Discharge Disposition: Home SNF Discharge Will this Physician continue t: No Discharge Instruct/Medications Diet: Regular Activity: No Restrictions, As Tolerated Follow Up/Referral: Discharge clinic in 1 week Medications: Medrol Dosepak Z-[place] Advair Diskus Continue albuterol as needed Discharge Statement: "Patient was advised to return to the ER or call 911 if any headaches, dizziness, shortness of breath, chest pain, abdominal pain, bleeding, fevers, or worsening of medical condition. Patient was counseled about treatment plan, medications, possible side effects, patientverbalized understanding. All questions were answered to the best of my ability. This discharge took greater then 30 minutes in planning, reviewing documentation, counseling the patient, and discussing with other team members." ASSESSMENT ASSESSMENT Assessment Asthma exacerbation Date of Service: Jan 03, 2024 Billing Provider: GRACIE CORREIA MD Common Visit Codes: [id number] DISCH DAY >30min GRACIE CORREIA MD Jan 03, 2024 13:12
--- NOTE | 2024-01-03 21:08 | DVHPN2 ---
Progress Note - Dictate Date Seen: Jan 03, 2024 Medical Necessity Reason Pt with a Central, PICC or Fol: No Subjective Patient seen and examined at bedside. Remains on supplemental oxygen Overnight events reviewed. vital signs Vital Sign Date Time Temp Pulse Resp B/P (MAP) Pulse Ox O2 Delivery O2 Flow Rate FiO2 01/03/24 14:54 102 18 93 01/03/24 14:54 Room Air* 0 21 01/03/24 13:37 36.4 01/03/24 13:00 114/72 (86) Total Intake and Output 01/02/24 01/02/24 01/03/24 15:00 23:00 07:00 Intake Total 325 ml 325 ml Balance 325 ml 325 ml objective Gen.: Patient lying in bed in no apparent distress. On supplemental oxygen. Head: Normocephalic, atraumatic. Eyes: EOMI/PERRLA. Ears: Normal hearing. Normal anatomy. Neck/trachea: Trachea midline, supple. Nose: Normal external anatomy. Mouth: Moist mucous membranes. Chest: Decreased air entry bilaterally. No wheezing. No rhonchi. Cardiovascular: Positive S1, positive S2. Regular rate and rhythm. Abdomen: Positive bowel sounds in all 4 quadrants. Soft, non-tender, non- distended. : Deferred. Rectal: Deferred. Skin: Warm, dry. Intact. Extremities: 2+ radial pulses bilaterally. No lower extremity edema. Neuro: Awake, alert, oriented x3. No gross motor or sensory deficits. Cranial nerves II through XII intact. Gait not assessed. 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 Follow up in 2-3 weeks in Pulmonary Clinic. Labs and imaging reviewed. Rest of plan as noted below. Plan: Chest x-ray imaging report reviewed. No acute opacities. No pleural effusion or pneumothorax. Supplemental oxygen, 2 liters/minute via nasal cannula. Keep O2 saturation above 92%. Taper O2 as tolerated. Continue bronchodilators IV steroids . Taper as tolerated. Recommend outpatient evaluation for immunologic given eosinophils of 600. DVT prophylaxis Prognosis: Guarded given multiple comorbidities. Rest of plan per hospitalist and other consultants. Thank you Dr. Luna for allowing me to participate in this patient's care. Further recommendations will depend on patient's clinical course. Please do not hesitate to contact me if you have any questions or concerns. This medical document was created using an electronic medical record system with [employer] dictation system. Although this document has been carefully reviewed, there may still be some phonetic and typographical errors. These areas are purely typographical due to imperfections of the software programs, and do not reflect any compromise in the patient's medical care. Dietary Evaluation Review Comments: Continue current plan of care Expected Outcomes/Goals: F/U in 3-5 days Plan discussed with: Patient, Other (LAUREL Ruggiero) ROSEMARY HERNANDEZ MD Jan 03, 2024 21:08
== END 2024-01-03 15:15 | disposition home or self-care (01) | DRG 141 ==
LOC: EDBD 19:20 → ER 19:25 → OVERFLOW 12-30 03:44 → EAST 12-30 09:58
PROVIDERS: ADMIT Hospitalist; ATTEND Internal Medicine Geriatric Medicine
DX: J45.901 Unspecified asthma with (acute) exacerbation (principal); J96.01 Acute respiratory failure with hypoxia; J82.83 Eosinophilic asthma; J20.9 Acute bronchitis, unspecified; Z20.822 Contact with and (suspected) exposure to COVID-19
CPT/HCPCS: 36415; 71045; 71046; 80048; 82962; 85025; 86803; 87070; 87205; 87340; 87426; 87804; 94640; 96374; 96375; G0378; J2405